=== PATIENT | female | born 2000 | race Caucasian/White ===

== ENCOUNTER 2023-09-14 18:12 | Emergency (ER) | payer OTHER, SELFPAY ==
--- NOTE | ~2023-09-14 | CT_ITS ---
EXAMINATION: CT cervical spine wo con DATE: 09/14/2023 20:05 INDICATION: Neck pain and bilateral cervical radiculopathy TECHNIQUE: Computed tomography (CT) of the cervical spine was performed without intravenous contrast. Automated exposure control and iterative reconstruction technique were employed. The dose-length pro duct was 254.40 mGy-cm. COMPARISON: None FINDINGS: Likely positional reversal of the normal cervical lordosis. No spondylolisthesis or facet subluxation . Vertebral body heights are normal. Tiny Schmorl's node along the superior endplate of T6. No fractu re. Mild disc height loss at C3-C4 and C4-C5. Cervical soft tissues are unremarkable. Visualized uppe r lungs are clear. The following disc levels are specifically discussed: C2-C3: The disc does not extend beyond the endplate margin. There is no uncovertebral joint osteoarth ritis. There is minimal left facet joint osteoarthritis. There is no neural foraminal stenosis. There is no central canal stenosis. C3-C4: The disc does not extend beyond the endplate margin. There is no uncovertebral joint osteoarth ritis. There is no facet joint osteoarthritis. There is no neural foraminal stenosis. There is no geraldo tral canal stenosis. C4-C5: Disc is mildly bulging. There is mild bilateral uncovertebral joint osteoarthritis. There is n o facet joint osteoarthritis. There is no neural foraminal stenosis. There is negligible central montez l stenosis. C5-C6: The disc does not extend beyond the endplate margin. There is mild bilateral uncovertebral annika nt osteoarthritis with very small posterior C6 superior endplate osteophyte. There is no facet joint osteoarthritis. There is no neural foraminal stenosis. There is negligible central canal stenosis. C6-C7: The disc does not extend beyond the endplate margin. There is no uncovertebral joint osteoarth ritis. There is no facet joint osteoarthritis. There is no neural foraminal stenosis. There is no geraldo tral canal stenosis. C7-T1: The disc does not extend beyond the endplate margin. There is no uncovertebral joint osteoarth ritis. There is no facet joint osteoarthritis. There is no neural foraminal stenosis. There is no geraldo tral canal stenosis. IMPRESSION: 1. Negligible cervical spondylosis. No acute osseous abnormality. Reviewed, dictated and finalized at location A. UER SPRAYER
[2023-09-14 18:25] VITALS: BP 108/66; PULSE 79; RESP 18; TEMP 36.7; O2SAT 100
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
[2023-09-14] MEDS: ACETAMINOPHEN 500 MG TABLET 1000 MG PO (20:10)
[2023-09-14] MEDS: IBUPROFEN 400 MG TABLET 800 MG PO (20:11)
== END 2023-09-14 21:09 | disposition home or self-care (01) ==
PROVIDERS: Emergency Provider Physician Assistant; PCP Internal Medicine
DX: M54.12 Radiculopathy, cervical region (principal)
CPT/HCPCS: 72125; 99284; A9270

== ENCOUNTER 2023-10-08 14:18 | Outpatient (CLI) | payer OTHER, SELFPAY ==
--- NOTE | ~2023-10-08 | XR_ITS ---
XR hip BI wo pelvis DATE: 10/08/2023 14:55 INDICATION: Multiple joint pain. Bilateral hip pain. TECHNIQUE: AP and lateral views of each hip COMPARISON: None FINDINGS: No fracture or dislocation, avascular necrosis or bone destruction of the right hip. There is a benign osteochondroma of the medial femoral neck. No fracture, dislocation, periosteal mich ction or bone destruction. Hip joint spaces are symmetric and well preserved. The pubic symphysis and sacroiliac joints are inta ct. IMPRESSION: Benign osteochondroma of medial left femoral neck Reviewed, dictated and finalized at location B. RDING STUDIO SET UP WORKER
--- NOTE | ~2023-10-08 | XR_ITS ---
XR wrist LT 2V DATE: 10/08/2023 14:55 INDICATION: Multiple joint pain. Left wrist pain. TECHNIQUE: AP and lateral views COMPARISON: None FINDINGS: No fracture or dislocation, periosteal reaction or bone destruction, joint space narrowing, erosive change or chondrocalcinosis. IMPRESSION: Negative Reviewed, dictated and finalized at location B. EL COORDINATOR IMPRESSION: Negative
--- NOTE | ~2023-10-08 | XR_ITS ---
XR hand LT 2V DATE: 10/08/2023 14:55 INDICATION: Multiple joint pain. Left hand pain. TECHNIQUE: AP and lateral views COMPARISON: None FINDINGS: No fracture or dislocation, periosteal reaction or bone destruction, erosive change, chondr ocalcinosis or joint space narrowing. IMPRESSION: Negative Reviewed, dictated and finalized at location B. OGIST AIDE IMPRESSION: Negative
--- NOTE | ~2023-10-08 | XR_ITS ---
XR ankle RT 2V DATE: 10/08/2023 14:55 INDICATION: Multiple joint pain. Right ankle pain. TECHNIQUE: AP and lateral views COMPARISON: None FINDINGS: No fracture or dislocation of the ankle or disruption of the ankle mortise. No periosteal r eaction or bone destruction. No soft tissue swelling. IMPRESSION: Negative Reviewed, dictated and finalized at location B. GER OF RADIOLOGY IMPRESSION: Negative
--- NOTE | ~2023-10-08 | XR_ITS ---
XR wrist RT 2V DATE: 10/08/2023 14:55 INDICATION: Multiple joint pain. Right wrist pain. TECHNIQUE: AP and lateral views COMPARISON: None FINDINGS: No fracture or dislocation, periosteal reaction or bone destruction, erosive change or mike drocalcinosis. Joint spaces are well preserved. IMPRESSION: Negative Reviewed, dictated and finalized at location B. TH SCIENCE INSTRUCTOR IMPRESSION: Negative
--- NOTE | ~2023-10-08 | XR_ITS ---
XR foot RT 2V DATE: 10/08/2023 14:55 INDICATION: Multiple joint pain. Right foot pain. TECHNIQUE: AP and lateral views COMPARISON: None FINDINGS: No fracture or dislocation, periosteal reaction or bone destruction. Joint spaces are prese rved. No erosive change. IMPRESSION: Negative Reviewed, dictated and finalized at location B. UCTION SCHEDULER IMPRESSION: Negative
--- NOTE | ~2023-10-08 | XR_ITS ---
XR hand RT 2V DATE: 10/08/2023 14:55 INDICATION: Multiple joint pain. Right hand pain. TECHNIQUE: AP and lateral views COMPARISON: None FINDINGS: No fracture or dislocation, periosteal reaction or bone destruction, erosive change or mike drocalcinosis. Joint spaces are preserved. IMPRESSION: Negative Reviewed, dictated and finalized at location B. D FRUIT WASHER IMPRESSION: Negative
--- NOTE | ~2023-10-08 | XR_ITS ---
XR_[id number]_CR DATE: 10/08/2023 14:55 INDICATION: Multiple joint pain. Right knee pain. TECHNIQUE: AP and lateral views COMPARISON: None FINDINGS: No fracture or dislocation, periosteal reaction or bone destruction. Joint spaces are well preserved. No radiopaque intra-articular loose body or chondrocalcinosis. IMPRESSION: Negative Reviewed, dictated and finalized at Location A. Reviewed, dictated and finalized at location B. ENTER OPERATOR IMPRESSION: Negative
--- NOTE | ~2023-10-08 | XR_ITS ---
XR ankle LT 2V DATE: 10/08/2023 14:55 INDICATION: Multiple joint pain. Left ankle pain. TECHNIQUE: AP and lateral views COMPARISON: None FINDINGS: No fracture or dislocation of the ankle or disruption of the ankle mortise. No periosteal r eaction or bone destruction. IMPRESSION: Negative Reviewed, dictated and finalized at location B. D SERVICE POULTRY TECHNICIAN IMPRESSION: Negative
--- NOTE | ~2023-10-08 | XR_ITS ---
XR_[id number]_CR DATE: 10/08/2023 14:55 INDICATION: Multiple joint pain. Left knee pain. TECHNIQUE: AP and lateral views COMPARISON: None FINDINGS: No fracture or dislocation or joint effusion. Joint spaces are well preserved. No radiopaqu e interarticular loose body or chondrocalcinosis. No periosteal reaction or bone destruction. IMPRESSION: Negative Reviewed, dictated and finalized at Location A. Reviewed, dictated and finalized at location B. ICAL ENGINEERING MANAGER IMPRESSION: Negative
--- NOTE | ~2023-10-08 | XR_ITS ---
XR foot LT 2V DATE: 10/08/2023 14:55 INDICATION: Multiple joint pain. Left foot pain. TECHNIQUE: AP and lateral views COMPARISON: None FINDINGS: No fracture, dislocation, periosteal reaction or bone destruction. No erosive change. Joint spaces are preserved. IMPRESSION: Negative Reviewed, dictated and finalized at location B. RUMENT LENS GRINDER APPRENTICE IMPRESSION: Negative
== END 2023-10-08 14:19 ==
PROVIDERS: PCP Internal Medicine Rheumatology; Visit Provider Internal Medicine Rheumatology
DX: M25.59 Pain in other specified joint (principal); D16.22 Benign neoplasm of long bones of left lower limb
CPT/HCPCS: 73100; 73120; 73521; 73560; 73600; 73620